=== PATIENT | female | born 1970 | race Hispanic/Latino ===

== ENCOUNTER → 2017-12-18 | Outpatient (CLI) | payer BC | END | disposition home or self-care (01) | LOC: RAH 16:31 | PROVIDERS: ATTEND Internal Medicine | DX: M47.896 Other spondylosis, lumbar region (principal); M41.85 Other forms of scoliosis, thoracolumbar region | CPT/HCPCS: 72082; 72100 ==

== ENCOUNTER → 2019-11-16 | Outpatient (CLI) | payer BC | END | disposition home or self-care (01) | LOC: RAH 16:02 | PROVIDERS: ATTEND Physical Medicine & Rehabilitation | DX: M47.816 Spondylosis without myelopathy or radiculopathy, lumbar region (principal) | CPT/HCPCS: 72110 ==

== ENCOUNTER → 2020-09-14 | Outpatient (CLI) | payer BC | END | disposition home or self-care (01) | LOC: OIH 09:03 | PROVIDERS: ATTEND Internal Medicine | DX: M25.521 Pain in right elbow (principal); E23.0 Hypopituitarism; E27.40 Unspecified adrenocortical insufficiency | CPT/HCPCS: 73080 ==

== ENCOUNTER → 2020-09-25 | Outpatient (CLI) | payer BC | END | disposition home or self-care (01) | LOC: RAH 10:23 | PROVIDERS: ATTEND Internal Medicine | DX: E27.40 Unspecified adrenocortical insufficiency (principal); E23.0 Hypopituitarism | CPT/HCPCS: 76770 ==

== ENCOUNTER → 2020-11-06 | Outpatient (CLI) | payer BC | END | disposition home or self-care (01) | LOC: RAH 09:01 | PROVIDERS: ATTEND Internal Medicine | DX: R10.11 Right upper quadrant pain (principal) | CPT/HCPCS: 76705 ==

== ENCOUNTER → 2023-08-27 | Outpatient (CLI) | payer BC | END | disposition home or self-care (01) | LOC: RAH 12:01 | PROVIDERS: ATTEND Internal Medicine | DX: R06.02 Shortness of breath (principal) | CPT/HCPCS: 71046 ==